=== PATIENT | female | born 1995 | race Caucasian/White ===

== ENCOUNTER → 2018-01-19 | Outpatient (CLI) | payer BC ==
--- NOTE | 2018-01-19 17:51 | KCIC ---
Ultrasound of the left neck HISTORY: Left submandibular lump for one week. TECHNIQUE: Targeted ultrasound is performed at the area of concern. FINDINGS: Multiple nodules are identified in the area of concern. The largest measures 1.3 cm diameter, with a lymph node morphology, with a central fatty hilum and some central vascularity. Several additional smaller mildly enlarged lymph nodes are seen also with lymph node architecture. No organized fluid collection is identified. Scanning was also performed in the right submandibular region demonstrating some additional small nodules or lymph nodes. IMPRESSION: Submandibular lymph node enlargement bilaterally, greater on the left, measuring up to 13 mm diameter. Nonspecific, but these may be reactive or infectious in nature. Recommend follow-up imaging to document resolution. Electronically signed by: Alek James MD (01/19/2018 5:47 PM) [id number]
== END | disposition home or self-care (01) ==
LOC: KCIC US 10:47
PROVIDERS: ATTEND Family Medicine
DX: K11.8 Other diseases of salivary glands (principal); R59.0 Localized enlarged lymph nodes
CPT/HCPCS: 76536